=== PATIENT | male | born 1995 | race Asian ===

== ENCOUNTER 2017-03-23 06:40 | Day surgery (SDC) | payer OTHER ==
[2017-03-12 15:09] VITALS: BMI 29.0
[2017-03-12 15:22] LABS: BASO ABS # 0.07 K/uL (0-0.2); EOS % 3.4 %; EOS ABS # 0.24 K/uL (0-0.5); HEMATOCRIT 47.5 % (42-52); HEMOGLOBIN 16.6 g/dL (14.0-18.0); IG# 0.02 K/uL (0.00-0.02); LYMPH % 28.9 %; LYMPH ABS # 2.06 K/uL (1.2-3.4); MEAN CELL VOLUME 85.9 fL (80-100); MEAN CORPUSCULAR HGB CONC 34.9 g/dl (32-36); MEAN PLATELET VOLUME 10.5 fL (7.4-10.4); NEUT % 59.4 %; NEUT ABS # 4.23 K/uL (1.4-6.5); PLATELET COUNT 219 K/uL (130-400); RED CELL DISTRIBUTION WIDTH SD 37.9 fL (36.4-46.3); WHITE BLOOD COUNT 7.12 K/uL (4.8-10.8)
--- NOTE | 2017-03-12 15:42 | PAT Medication Instructions ---
Service Date Mar 12, 2017. Current Home Medication List Calcium Carbonate (Tums), 1 TAB PO UD PRN for PRN Ibuprofen (Advil), 200 MG PO UD PRN for PRN [Cream], Unknown Dose TOP UD PRN for FUNGI Medication Instructions For Your Scheduled Surgery - Follow surgeon's instructions: Ibuprofen (Advil), 200 MG PO UD PRN for PRN - Hold the following medications 24 hours prior to surgery: [Cream], Unknown Dose TOP UD PRN for FUNGI - Hold the following medications the morning of surgery: Calcium Carbonate (Tums), 1 TAB PO UD PRN for PRN If you have any questions please call us at [phone] or [phone] or [phone]
--- NOTE | 2017-03-12 16:03 | DIAGNOSTIC IMAGING REPORT ---
TWO VIEW CHEST CLINICAL HISTORY: Preoperative examination. FINDINGS: PA and lateral chest radiographs are obtained. No prior studies are available for comparison at the time of dictation. The cardiomediastinal silhouette is unremarkable. The lungs and pleural spaces are clear. There is no pneumothorax. The bony thorax appears intact. IMPRESSION: No active disease in the chest. Electronically signed by: Anderson Heredia M.D. 03/12/2017 4:02 PM Dictated Date/Time: 03/12/2017 4:00 PM
[2017-03-12 16:19] LABS: CALCIUM 9.8 mg/dl (8.5-10.1); CREATININE 0.94 mg/dl (0.60-1.40)
[~2017-03-23] VITALS: Ht 170.2 cm; Wt 84.1 kg
[~2017-03-23 06:40] MED LIST: CALC500C3 PO; CEFAZOLIN 2000MG IV PUSH 10 ML IV SCH; CREAM TOP; IBUP-1050 PO; LACTATED RINGER'S 1000ML 1,000 ML IV SCH
[2017-03-23] MEDS ORDERED: AUG0.05C12 TOP (06:59)
[2017-03-23] MEDS ORDERED: BUPIVACAINE 0.5 % 5 MG/1 ML MPF 30ML VIAL ONE (07:04)
--- NOTE | 2017-03-23 07:04 | History & Physical Bridge Note ---
H&P Re-Evaluation Bridge Note: I have examined the patient, reviewed the History & Physical and in the interval since the performance of the History & Physical I have noted the following changes of clinical significance: No changes noted
[2017-03-23 07:05] VITALS: BP 125/62; PULSE 66; TEMP 36.5; O2SAT 99; Ht 170.2 cm; Wt 84.1 kg
[2017-03-23] MEDS ORDERED: LIDOCAINE HCL 1% 20 ML VIAL ONE (07:05)
[2017-03-23] MEDS ORDERED: PROPOFOL IV EMULSION 10 MG/ML 20 ML VIAL IV ONE (07:26)
[2017-03-23] MEDS ORDERED: FENTANYL CITRATE INJ 50 MCG/1 ML 2 ML VIAL ONE (07:26)
[2017-03-23] MEDS ORDERED: MIDAZOLAM HCL 1 MG/ML 2ML VIAL ONE (07:26)
[2017-03-23] MEDS ORDERED: LIDOCAINE HCL 2% 2 ML VIAL (20MG/ML) ONE (07:26)
[2017-03-23] MEDS ORDERED: ONDANSETRON INJ 2 MG/ML 2 ML VIAL ONE (07:26)
[2017-03-23] MEDS ORDERED: KETOROLAC TROMETHAMINE 30 MG/ML VIAL IV. PRN (07:45)
[2017-03-23] MEDS ORDERED: ONDANSETRON INJ 2 MG/ML 2 ML VIAL IV PRN (07:45)
[2017-03-23] MEDS ORDERED: ATROPINE SULFATE 0.1 MG/ML 5ML SYR IV PRN (07:45)
[2017-03-23] MEDS ORDERED: FENTANYL CITRATE INJ 50 MCG/1 ML 2 ML VIAL IV PRN (07:45)
[2017-03-23] MEDS ORDERED: OXYC-57 PO (07:51)
--- NOTE | 2017-03-23 07:54 | Discharge Instructions ---
Discharge Instructions Date of Service Mar 23, 2017. Admission Reason for Admission: Phimosis Discharge Discharge Diagnosis / Problem: Phimosis Discharge Goals Goal(s): Decrease discomfort, Improve function Activity Recommendations Activity Limitations: per Instructions/Follow-up section Lifting Limitations: no more than 25 pounds, gradually increase as tolerated Exercise/Sports Limitations: rest today, gradually increase as tolerated May Resume Sexual Activity: after follow-up appointment Shower/Bathe: tomorrow . Instructions / Follow-Up Instructions / Follow-Up Okay to remove bandage tomorrow. Okay to shower. No baths or hot tubs. Okay to wash gently with warm soapy water. No scrubbing. Okay to use ice 20 mins on and 20 mins off. Expect some swelling and redness. Call if severe. Call if developing fevers. Call for any concerns or other issues. Current Hospital Diet Patient's current hospital diet: Discharge Diet Recommended Diet: Regular Diet Procedures Procedures Performed: Circumcision Pending Studies Studies pending at discharge: no Medical Emergencies . Who to Call and When: Medical Emergencies: If at any time you feel your situation is an emergency, please call 911 immediately. . Non-Emergent Contact Non-Emergency issues call your: Primary Care Provider, Urologist . . "Provider Documentation" section prepared by Ruben Portillo,. . VTE Core Measure Inpt VTE Proph given/why not?: SCD's
[2017-03-23] MEDS ORDERED: OXYCODONE/ACETAMINOPHEN 7.5-325 TAB PO PRN (08:00)
[2017-03-23] MEDS ORDERED: LIDOCAINE HCL 1% IV ONE (09:03)
[2017-03-23] MEDS ORDERED: LIDOCAINE/EPINEPHRINE 1% 20 ML VIAL INJ ONE (09:06)
[2017-03-23] MEDS ORDERED: BUPIVACAINE 0.5 % 5 MG/1 ML MPF 30ML VIAL INJ ONE (09:06)
--- NOTE | 2017-03-23 09:09 | [facility] Operative Report ---
Operative Report Operative Date Mar 23, 2017. Pre-Operative Diagnosis Phimosis Post-Operative Diagnosis Same Procedure(s) Performed Circumcision Surgeon [employer] Surgeon(s) None Estimated Blood Loss Minimal Findings Phimosis with redundant foreskin Specimens foreskin Drains None Anesthesia General Complication(s) None Disposition Recovery Room / PACU Indications Recurrent balanitis with phimosis. Risks and benefits discussed. Description of Procedure Patient was consented and brought back to the operating room. Patient was placed under anesthesia in the supine position. Patient was prepped and draped in the regular sterile fashion. A time out was completed. With time out completed, a penile block was placed with at the base of the penis with local anesthetic. The skin was marked and first the distal incision was made circumferentially allowing for a wide skin cuff. This was then reduced , and the proximal incision was made with a scalpel. The tissues were dissected and the incisions connected by opening the bridge. The edges were then grasped with hemostats and the redundant foreskin was dissected off. The wound bed was assessed and all bleeding controlled. With the bleeding controlled. The skin was approximated first at the 12 and 6 o'clock positions. Circumferentially, the skin was closed with inturrupted suture. The skin closed, the area was cleaned. Dermabound was placed on the incision. A bandage was then placed. The patient was cleaned, aroused from anesthesia, and transferred to the pacu in stable condition having tolerated the procedure well with no complications. I was present and participated in all aspects of the procedure. I attest to the content of the Intraoperative Record and any orders documented therein. Any exceptions are noted below.
[2017-03-23 09:55] VITALS: BP 106/57; PULSE 62; TEMP 36.5; O2SAT 95
[2017-03-23 10:25] VITALS: BP 95/54; PULSE 64; TEMP 36.4; O2SAT 100
--- NOTE | 2017-03-23 10:37 | Anesthesiology Progress Note ---
Anesthesia Post Op Note Date & Time Mar 23, 2017 at 10:36 Vital Signs Pain Intensity: 0 Vital Signs Past 12 Hours Date Time Temp Pulse Resp B/P (MAP) Pulse Ox O2 Delivery O2 Flow Rate FiO2 03/23/17 10:25 36.4 64 18 95/54 100 Room Air 03/23/17 09:55 36.5 62 18 106/57 95 Room Air 03/23/17 09:45 36.3 56 16 109/59 97 Room Air 03/23/17 09:35 68 18 109/61 97 Room Air 03/23/17 09:25 56 15 109/61 98 Oxymask 5 03/23/17 09:16 36.2 65 15 115/70 97 Oxymask 10 03/23/17 07:05 36.5 66 16 125/62 (83) 99 Room Air Notes Mental Status: alert / awake / arousable, participated in evaluation Pt Amnestic to Procedure: Yes Nausea / Vomiting: adequately controlled Pain: adequately controlled Airway Patency, RR, SpO2: stable & adequate BP & HR: stable & adequate Hydration State: stable & adequate Anesthetic Complications: no major complications apparent
== END 2017-03-23 10:34 | disposition home or self-care (01) ==
LOC: C.ACU 06:40
PROVIDERS: ATTEND Urology
DX: N47.1 Phimosis (principal); N48.1 Balanitis